=== PATIENT | female | born 1950 | race American Indian/Alaskan Native ===

== ENCOUNTER 2018-11-15 10:55 | Outpatient (CLI) | payer OTHER | END 2018-11-15 11:00 | disposition home or self-care (01) | LOC: RAD 10:55 | DX: R07.89 Other chest pain (principal) ==

== ENCOUNTER → 2019-01-24 | Outpatient (CLI) | payer OTHER | END | disposition home or self-care (01) | LOC: NUCLEAR 07:13 | DX: C50.412 Malignant neoplasm of upper-outer quadrant of left female breast (principal); C79.51 Secondary malignant neoplasm of bone | CPT/HCPCS: 78306; A9503 ==

== ENCOUNTER 2022-12-11 13:41 | Outpatient (CLI) | payer OTHER | END 2022-12-11 13:43 | disposition home or self-care (01) | LOC: NUCLEAR 13:41 | PROVIDERS: ATTEND General Practice | DX: M81.0 Age-related osteoporosis without current pathological fracture (principal) ==

== ENCOUNTER 2023-11-29 11:31 | Outpatient (CLI) | payer OTHER | END 2023-11-29 11:42 | disposition home or self-care (01) | LOC: SONOGRAMA 11:31 | PROVIDERS: ATTEND Internal Medicine Hematology & Oncology | DX: D17.9 Benign lipomatous neoplasm, unspecified (principal) ==

== ENCOUNTER 2024-01-19 13:42 | Outpatient (CLI) | payer OTHER | END 2024-01-19 13:53 | disposition home or self-care (01) | LOC: MRI 13:42 | PROVIDERS: ATTEND Orthopaedic Surgery | DX: M79.605 Pain in left leg (principal); R22.42 Localized swelling, mass and lump, left lower limb; M25.511 Pain in right shoulder; M75.41 Impingement syndrome of right shoulder ==

== ENCOUNTER 2024-01-21 10:25 | Outpatient (CLI) | payer OTHER | END 2024-01-21 10:48 | disposition home or self-care (01) | LOC: MRI 10:25 | PROVIDERS: ATTEND Orthopaedic Surgery | DX: M79.605 Pain in left leg (principal); R22.42 Localized swelling, mass and lump, left lower limb | CPT/HCPCS: 73721 ==

== ENCOUNTER 2024-01-27 13:36 | Outpatient (CLI) | payer OTHER ==
[2024-01-27 14:53] LABS: CREATININE SERUM 0.79 mg/dL (0.55-1.02)
== END 2024-01-27 13:38 | disposition home or self-care (01) ==
LOC: LAB 13:36
PROVIDERS: ATTEND Orthopaedic Surgery
DX: N19 Unspecified kidney failure (principal)

== ENCOUNTER 2024-02-02 08:21 | Outpatient (CLI) | payer OTHER | END 2024-02-02 08:28 | disposition home or self-care (01) | LOC: MRI 08:21 | PROVIDERS: ATTEND Orthopaedic Surgery | DX: M25.511 Pain in right shoulder (principal); M75.121 Complete rotator cuff tear or rupture of right shoulder, not specified as traumatic; M19.011 Primary osteoarthritis, right shoulder | CPT/HCPCS: 73223; Q9965; 73222 ==